=== PATIENT | male | born 2000 | race Caucasian/White ===

== ENCOUNTER 2023-02-27 01:52 | Emergency (ER) | payer BC, SELFPAY ==
[2023-02-27 01:53] VITALS: BP 157/82; PULSE 110; RESP 16; TEMP 36.6; O2SAT 95; BMI 25.4
--- NOTE | 2023-02-27 02:07 | EX.ED.DYSGE1 ---
HPI History of Present Illness Chief Complaint: General Illness Informant: patient Narrative Narrative: Patient presents with multiple symptoms for about 36 hours. This is an overall healthy male with no long-term medical problems. He states yesterday morning or early afternoon sometime he started to feel sick. He had the sensation of fevers myalgias nonproductive cough. He has had nausea. He did vomit then. The symptoms have all continued. His appetite is down. He has not coughed up any blood. He did vomit earlier and brought up some blood. But he had also had a right-sided nosebleed with this. No black material. He has not repeated the blood in vomitus. [facility] Medical History Asthma Home Medications albuterol sulfate 90 mcg/actuation aerosol inhaler 2 puff inhalation Q4H PRN shortness of breath or wheezing 02/27/23 [History Last Taken Unknown] ondansetron 4 mg disintegrating tablet 4 mg PO Q8H PRN PRN Nausea #10 tabs 02/27/23 [Rx Last Taken Unknown] Allergy/AdvReac Type Severity Reaction Status Date / Time No Known Allergies Allergy Verified 02/27/23 01:56 Social History Smoking Status: Never smoker ROS [facility] ED Constitutional Constitutional ED: Reports chills and subjective Eyes Eyes: Denies change in vision ENT ENT ED: Reports rhinorrhea; Denies ear pain or sore throat Cardiovascular Cardiovascular: Denies chest pain or palpitations Respiratory/Chest Respiratory/Chest: Reports cough; Denies dyspnea Gastrointestinal Gastrointestinal: Reports nausea and vomiting; Denies abdominal pain or diarrhea Genitourinary Genitourinary ED: Denies dysuria Musculoskeletal Musculoskeletal: Reports myalgias Integumentary Denies Abrasions or rash Neurologic Neurologic: Denies headache(s) Hematologic/Lymphatic Hematologic/Lymphatic: Denies easy bleeding, easy bruising or lymphadenopathy Allergic/Immunologic Allergic/Immunologic ED: Denies urticaria EXAM Physical Exam Narrative Exam Narrative: CONSTITUTIONAL: Patient is nontoxic in appearance. The patient looks comfortable. Work of breathing looks normal. HEENT: No notable trauma. Mucous membranes moist. No sinus tenderness. He has a little bit of dried blood in the right naris. No purulent discharge. EYES: No conjunctival injection. No pallor. NECK:No JVD. No stridor. CARDIOVASCULAR: Regular rate. Regular rhythm. No notable murmur. No JVD. RESPIRATORY: No respiratory distress. Breathing is unlabored. No wheezes. No rhonchi. No rales. No pain with a deep breath. No chest wall tenderness. GASTROINTESTINAL: Not distended. Bowel sounds are normal. No tenderness. No guarding. No rebound. No palpable mass. No bruit is heard. GENITOURINARY: No tenderness over the bladder. No CVA tenderness. MUSCULOSKELETAL: Atraumatic. No peripheral edema. No cord. No tenderness along the deep venous system. No asymmetry. No distended veins. NEUROLOGICAL: Patient is alert and appropriate. No focal deficit noted. SKIN: No noted rashes. No diaphoresis. PSYCHIATRIC: Patient is calm. Mood is appropriate. Const Vital Signs: 02/27/23 01:53 02/27/23 03:24 Temperature 98 F Temperature Source Temporal Pulse Rate 110 H Respiratory Rate 16 Respiratory Effort Normal Respiratory Pattern Normal Blood Pressure 157/82 H Blood Pressure Mean 107 Pulse Ox 95 Oxygen Delivery Method Room Air MDM MDM MDM Narrative Medical decision making narrative: Patient sounds like he has viral illness. He vomited blood once but had a nosebleed with it. This has not been repeated. He does not at all look pale. Conjunctive is not pale. I do not think this patient needs blood work as he is only vomited a few times and he vomited blood once after short-lived bloody nose. Patient's COVID test is positive. His influenza is negative. I am not able to independently reviewed the patient's chest x-ray. We have a problem with our system tonight. The x-rays can be done but they are not on our system so I cannot look at the x-rays at all. We have to wait for the final reading. I did get the final reading on this film. It was faxed to us approximately an hour and 40 minutes after it was read. Happily, the x-ray showed no acute process. Patient is feeling better. We will get him home with Zofran. I do not think this patient is at high risk and I do not think he needs Paxlovid. Discharge Plan Triage Chief Complaint: General Illness ED Provider: Bruno Del Real Dx/Rx/DC Orders Clinical Impression: COVID, Nausea & vomiting Instructions: Coronavirus Disease 2019 (COVID-19): Caring for Yourself or Others, ED Vomiting (Adult) Prescriptions: New ondansetron [ondansetron] 4 mg tablet,disintegrating 4 mg PO Q8H PRN PRN (Reason: Nausea) Qty: 10 0RF No Action albuterol sulfate 90 mcg/actuation HFA aerosol inhaler 2 puff INHALATION Q4H PRN (Reason: shortness of breath or wheezing) Patient Comments: TAKE 2 PUFFS BY MOUTH EVERY 4 HOURS NEEDED Primary Care Provider: Care Physician,No Primary Referrals: Fast,Arlene, DO [Med Staff - Roof Technician] - 1 Week if not improving NOT,DEFINED [Non-Staff] - Disposition Disposition: Home, Self Care
[2023-02-27] MEDS: Ondansetron ODT 4 MG Tablet PO (02:14)
--- NOTE | 2023-02-27 02:15 | RAD_ITS ---
EXAM: XR CHEST, 2 VIEWS CLINICAL INDICATION: cough TECHNIQUE: Frontal and lateral views of the chest. COMPARISON: No relevant prior studies available. FINDINGS: LUNGS AND PLEURAL SPACES: Unremarkable. No consolidation or edema. No pneumothorax. No effusion. HEART: Unremarkable. Cardiac silhouette not enlarged. MEDIASTINUM: Central airways and mediastinal contour are unremarkable. BONES/JOINTS: Unremarkable. No acute fracture. SOFT TISSUES: Unremarkable. RAD/Chest PA and Lateral IMPRESSION: No radiographic evidence of acute cardiopulmonary disease. Electronically Signed: Jesus Garcia MD at 2:43 EST ,
[2023-02-27 04:58] VITALS: BP 124/75; PULSE 87; RESP 16; O2SAT 97
== END 2023-02-27 05:00 | disposition home or self-care (01) ==
PROVIDERS: Emergency Provider Emergency Medicine; Visit Provider Emergency Medicine
DX: U07.1 COVID-19 (principal); R04.0 Epistaxis; J45.909 Unspecified asthma, uncomplicated; R11.2 Nausea with vomiting, unspecified
CPT/HCPCS: 71046; 87428; 99282